=== PATIENT | female | born 1985 | race Caucasian/White ===

== ENCOUNTER 2017-01-04 02:30 | Inpatient (IN) | payer BC ==
[~2017-01-04] VITALS: Ht 157.5 cm; Wt 104.3 kg
[2017-01-04] MEDS ORDERED: OXYTOCIN/NORMAL SALINE 1,000 ML IV SCH (02:37)
[2017-01-04] MEDS ORDERED: NALBUPHINE HCL 10 MG/ML AMP IVP PRN ×2 (02:45→08:15)
[2017-01-04] MEDS ORDERED: TERBUTALINE SULFATE 1 MG/ML VIAL SUBCUT ONE (02:45)
[2017-01-04 03:12] LABS: HEMATOCRIT 32.1 % (36-48); HEMOGLOBIN 10.7 g/dL (12.0-16.0); MEAN CORPUSCULAR VOLUME 85 fL (79.0-98.0); WHITE BLOOD COUNT (AUTO) 16.4 K/uL (4.8-10.8)
[2017-01-04 03:13] LABS: MEAN CORPUSCULAR HEMOGLOBIN 28 pg (27-31); MEAN CORPUSCULAR HGB CONC 33 % (32-36); PLATELET COUNT (AUTO) 255 K/uL (130-430); RED CELL DISTRIBUTION WIDTH 12.7 % (9.0-15.0)
[2017-01-04] MEDS: LR 1,000 ML IV SCH ×3 (03:30→08:57)
[2017-01-04] MEDS ORDERED: FENT2mCg/mL-ROPIVA0.2%/NS EPID 150 ML EP ONE (03:39)
[2017-01-04] MEDS ORDERED: AMPICILLIN SODIUM 2 GM VIAL ONE (03:39)
[2017-01-04 03:44] LABS: ATYPICAL LYMPHOCYTES % 0 % (0-0); BAND % (MANUAL) 5 % (0-6); BASOPHILS % (MANUAL) 0 % (0-2); EOSINOPHILS % (MANUAL) 0 % (0-7); LYMPHOCYTES % (MANUAL) 3 % (20-46); MONOCYTES % (MANUAL) 2 % (0-11)
[2017-01-04] MEDS ORDERED: AMPICILLIN SODIUM 2 GM in NS 100 ML IV ONE (04:00)
[2017-01-04] MEDS ORDERED: LR 500 ML IV ONE (04:25)
[2017-01-04] MEDS ORDERED: FENT2mCg/mL-ROPIVA0.2%/NS EPID 150 ML EP SCH (04:30)
[2017-01-04] MEDS ORDERED: ePHEDrine sulfate 50 MG/ML VIAL IVP PRN (04:30)
[2017-01-04 05:11] VITALS: BP_SYST 129
[2017-01-04] MEDS ORDERED: CEFAZOLIN 2 GM IVPB PREMIX 50 ML IV ONE (06:30)
[2017-01-04] MEDS ORDERED: CITRIC ACID/SODIUM CITRATE 30 ML UDC PO ONE (06:30)
[2017-01-04] MEDS ORDERED: AMPICILLIN SODIUM 1 GM in NS 50 ML IV SCH (08:00)
[2017-01-04] MEDS ORDERED: LR 1,000 ML IV SCH (08:04)
[2017-01-04] MEDS ORDERED: ONDANSETRON HCL 4 MG/2 ML VIAL IVP PRN ×2 (08:15)
[2017-01-04] MEDS ORDERED: NALOXONE HCL 0.4 MG/ML AMP (NARCAN) IVP PRN (08:15)
[2017-01-04] MEDS ORDERED: MEPERIDINE HCL/PF 25 MG/ML DISP.SYRIN IVP PRN ×2 (08:15)
[2017-01-04] MEDS ORDERED: DIPHENHYDRAMINE INJ 50 MG/ML VIAL IVP PRN (08:15)
[2017-01-04] MEDS ORDERED: HYDROmorphone 2 MG/ML VIAL IVP PRN ×2 (08:15)
[2017-01-04] MEDS ORDERED: KETOROLAC TROMETHAMINE 30 MG VIAL IVP PRN ×2 (08:15)
[2017-01-04] MEDS ORDERED: MORPHINE SULFATE 10MG/10ML PF AMP EP SCH (08:15)
[2017-01-04] MEDS ORDERED: HYDROmorphone 1 MG INJ. 1 MG/ML AMPUL IVP PRN ×2 (08:15)
[2017-01-04] MEDS ORDERED: MEPERIDINE HCL/PF 25 MG/ML DISP.SYRIN ONE (08:40)
[2017-01-04] MEDS ORDERED: ANUSOL 1 EA SUPP.RECT (PREPARATION H) RC PRN (08:45)
[2017-01-04] MEDS ORDERED: BISACODYL 10 MG/SUPPOSITORY RC PRN (08:45)
[2017-01-04] MEDS ORDERED: HYDROcodone/ACETAMIN 5-325 MG TAB (NORCO/ VICODIN) PO PRN (08:45)
[2017-01-04] MEDS ORDERED: LANOLIN 7 GM OINT. TP PRN (08:45)
[2017-01-04] MEDS ORDERED: MEASLES,MUMPS&RUBELLA VACC/PF 12500 UNIT/0.5 ML VIAL SUBQ PRN (08:45)
[2017-01-04] MEDS ORDERED: RHO(D) IMMUNE GLOBULIN/MALTOSE 1500 UNITS/1.3 ML (WINHRO) IM PRN (08:45)
[2017-01-04] MEDS ORDERED: OXYTOCIN/NORMAL SALINE 1,000 ML IV ONE ×2 (08:45)
[2017-01-04] MEDS ORDERED: OXYCODONE/ACETAMINOPHEN 5-325 TABLET PO PRN (08:45)
[2017-01-04 09:04] VITALS: BP_SYST 122
[2017-01-04] MEDS: CEFAZOLIN 1 GM IVPB PREMIX 50 ML IV SCH ×2 (14:03→21:00)
[2017-01-04] MEDS: KETOROLAC TROMETHAMINE 30 MG VIAL IVP SCH ×2 (14:05→21:38)
[2017-01-04] MEDS ORDERED: NS IRRIG SOLN 1000 ML IR ONE (17:04)
[2017-01-04] MEDS ORDERED: LR 1,000 ML IV.SOLN IV ONE (17:04)
[2017-01-04] MEDS ORDERED: OXYTOCIN 10 UNIT/ML VIAL IV ONE (17:04)
[2017-01-04] MEDS ORDERED: ROPIVACAINE 40 MG/20 ML AMP EP ONE (17:04)
[2017-01-04] MEDS ORDERED: MORPHINE SULFATE 10MG/10ML PF AMP EP ONE (17:04)
[2017-01-04] MEDS ORDERED: TEMAZEPAM 15 MG CAPSULE PO PRN (21:00)
[2017-01-04 21:15] LABS: HEMATOCRIT 25.9 % (36-48); MEAN CORPUSCULAR HEMOGLOBIN 28 pg (27-31); MEAN CORPUSCULAR HGB CONC 33 % (32-36); MEAN CORPUSCULAR VOLUME 85 fL (79.0-98.0); PLATELET COUNT (AUTO) 178 K/uL (130-430); RED BLOOD CELL COUNT(AUTO) 3.06 MIL/uL (4.2-6.2); RED CELL DISTRIBUTION WIDTH 12.9 % (9.0-15.0)
[2017-01-04 21:17] LABS: WHITE BLOOD COUNT (AUTO) 10.9 K/uL (4.8-10.8)
[2017-01-04 21:18] LABS: HEMOGLOBIN 8.6 g/dL (12.0-16.0)
[2017-01-04 21:28] LABS: BAND % (MANUAL) 10 % (0-6); BASOPHILS % (MANUAL) 0 % (0-2); EOSINOPHILS % (MANUAL) 0 % (0-7); LYMPHOCYTES % (MANUAL) 4 % (20-46); MONOCYTES % (MANUAL) 4 % (0-11)
[2017-01-04] MEDS ORDERED: ACETAMINOPHEN 325 MG TABLET PO PRN (22:45)
[2017-01-05] MEDS: CEFAZOLIN 1 GM IVPB PREMIX 50 ML IV SCH (02:44)
[2017-01-05] MEDS: KETOROLAC TROMETHAMINE 30 MG VIAL IVP SCH ×2 (02:45→09:35)
[2017-01-05] MEDS: LR 1,000 ML IV SCH (02:47)
[2017-01-05 06:31] LABS: BASOPHILS % (AUTO) 0.1 % (0.0-2.0); EOSINOPHILS % (AUTO) 0.1 % (0.0-4.0); LYMPHOCYTES # (AUTO) 0.6 K/uL (1.0-5.5); LYMPHOCYTES % (AUTO) 4.9 % (20.5-51.5); MEAN CORPUSCULAR HEMOGLOBIN 29 pg (27-31); MEAN CORPUSCULAR HGB CONC 33 % (32-36); MEAN CORPUSCULAR VOLUME 86 fL (79.0-98.0); MONOCYTES # (AUTO) 0.6 K/uL (0.0-1.0); MONOCYTES % (AUTO) 5.2 % (1.7-9.3); NEUTROPHILS # (AUTO) 10.5 K/uL (1.8-7.7); PLATELET COUNT (AUTO) 191 K/uL (130-430); RED CELL DISTRIBUTION WIDTH 12.5 % (9.0-15.0); WHITE BLOOD COUNT (AUTO) 11.7 K/uL (4.8-10.8)
[2017-01-05 07:09] LABS: NEUTROPHILS % (AUTO) 89.7 % (40.0-70.0)
[2017-01-05] MEDS: DOCUSATE SODIUM 100 MG CAPSULE PO PRN ×2 (13:31→21:34)
[2017-01-05] MEDS: IBUPROFEN 600 MG TABLET PO SCH ×3 (13:32→23:59)
[2017-01-05] MEDS: SENNOSIDES/DOCUSATE SODIUM 1 TAB TABLET(SENOKOT-S) PO PRN ×2 (13:32→21:34)
[2017-01-05] MEDS: SIMETHICONE 80 MG TAB.CHEW PO PRN ×2 (13:32→21:34)
[2017-01-06] MEDS: OXYCODONE/ACETAMINOPHEN 5-325 TABLET PO PRN ×2 (01:16→19:14)
[2017-01-06] MEDS: IBUPROFEN 600 MG TABLET PO SCH ×3 (05:58→18:05)
[2017-01-06] MEDS: SIMETHICONE 80 MG TAB.CHEW PO PRN (16:35)
[2017-01-06] MEDS: DOCUSATE SODIUM 100 MG CAPSULE PO PRN (16:35)
== END 2017-01-06 20:20 | disposition home or self-care (01) | DRG 766 ==
LOC: SPU 02:30
PROVIDERS: ADMIT Specialist; ATTEND Specialist
PROC: 3E0R3BZ Introduction of Anesthetic Agent into Spinal Canal, Percutaneous Approach (ICD-10-PCS; 2017-01-04)
PROC: 00HU33Z Insertion of Infusion Device into Spinal Canal, Percutaneous Approach (ICD-10-PCS; 2017-01-04)
PROC: 10D00Z1 Extraction of Products of Conception, Low, Open Approach (ICD-10-PCS; principal; 2017-01-04 07:30)
DX: O76 Abnormality in fetal heart rate and rhythm complicating labor and delivery (principal); O33.9 Maternal care for disproportion, unspecified; O48.0 Post-term pregnancy; Z37.0 Single live birth; O62.2 Other uterine inertia; O77.0 Labor and delivery complicated by meconium in amniotic fluid; Z3A.40 40 weeks gestation of pregnancy
CPT/HCPCS: 36415; 85007; 85025; 85027; 86886; 86900; 86901; 87040-TC; J0290; J0690; J1885; J2175; J2274; J2590; J2795; J3010; J7120

== ENCOUNTER 2018-11-04 06:21 | Inpatient (IN) | payer BC ==
[2018-11-02 15:20] LABS: BILIRUBIN,URINE NEGATIVE (NEGATIVE); BLOOD, URINE NEGATIVE (NEGATIVE); CLARITY/URINE HAZY (CLEAR); COLOR,URINE YELLOW (YELLOW); GLUCOSE,URINE NEGATIVE (NEGATIVE); KETONES,URINE NEGATIVE (NEGATIVE); LEUKOCYTE ESTERASE ,URINE NEGATIVE (NEGATIVE); NITRITE, URINE NEGATIVE (NEGATIVE); PH,URINE 6.5 (5.0-8.0); PROTEIN URINE NEGATIVE (NEGATIVE); UROBILINOGEN,URINE 0.2 (0.2-1.0)
[2018-11-02 15:26] LABS: BASOPHILS % (AUTO) 0.4 % (0.0-2.0); EOSINOPHILS # (AUTO) 0.1 K/uL (0.0-0.4); EOSINOPHILS % (AUTO) 1.7 % (0.0-4.0); HEMATOCRIT 29.6 % (36-48); LYMPHOCYTES # (AUTO) 0.7 K/uL (1.0-5.5); LYMPHOCYTES % (AUTO) 11.7 % (20.5-51.5); MEAN CORPUSCULAR HEMOGLOBIN 29 pg (27-31); MEAN CORPUSCULAR HGB CONC 34 % (32-36); MEAN CORPUSCULAR VOLUME 86 fL (79.0-98.0); MONOCYTES # (AUTO) 0.4 K/uL (0.0-1.0); MONOCYTES % (AUTO) 5.8 % (1.7-9.3); NEUTROPHILS # (AUTO) 5.1 K/uL (1.8-7.7); NEUTROPHILS % (AUTO) 80.4 % (40.0-70.0); PLATELET COUNT (AUTO) 171 K/uL (130-430); RED BLOOD CELL COUNT(AUTO) 3.44 MIL/uL (4.2-6.2); RED CELL DISTRIBUTION WIDTH 13.4 % (9.0-15.0); WHITE BLOOD COUNT (AUTO) 6.3 K/uL (4.8-10.8)
[~2018-11-04] VITALS: Ht 162.6 cm; Wt 103.4 kg
[2018-11-04] MEDS ORDERED: LR 1,000 ML IV SCH ×3 (06:26→08:37)
[2018-11-04] MEDS ORDERED: CEFAZOLIN 2 GM IVPB PREMIX 50 ML IV ONE (06:30)
[2018-11-04 06:48] VITALS: BP_SYST 114
[2018-11-04] MEDS ORDERED: NALOXONE HCL 1 MG in NACL 0.9% 1,000 ML IV PRN ×4 (07:36)
[2018-11-04] MEDS ORDERED: DIPHENHYDRAMINE HCL 50 MG CAPSULE PO PRN (07:45)
[2018-11-04] MEDS ORDERED: DIPHENHYDRAMINE INJ 50 MG/ML VIAL IVP PRN (07:45)
[2018-11-04] MEDS ORDERED: ONDANSETRON HCL 4 MG/2 ML VIAL IVP PRN (07:45)
[2018-11-04] MEDS ORDERED: HYDROmorphone 2 MG/ML VIAL IVP PRN ×2 (07:45)
[2018-11-04] MEDS ORDERED: MEPERIDINE HCL/PF 25 MG/ML DISP.SYRIN IVP PRN ×2 (07:45)
[2018-11-04] MEDS ORDERED: HYDROmorphone 1 MG INJ. 1 MG/ML AMPUL IVP PRN ×2 (07:45→13:00)
[2018-11-04] MEDS ORDERED: NALOXONE HCL 0.4 MG/ML AMP (NARCAN) IVP PRN ×3 (07:45)
[2018-11-04] MEDS ORDERED: OXYTOCIN/0.9 % SODIUM CHLORIDE 1,000 ML IV ONE (08:37)
[2018-11-04] MEDS ORDERED: MORPHINE SULFATE 10MG/10ML PF AMP EP ONE (08:45)
[2018-11-04] MEDS ORDERED: RHO(D) IMMUNE GLOBULIN/MALTOSE 1500 UNITS/1.3 ML (WINHRO) IM PRN (08:45)
[2018-11-04] MEDS ORDERED: ANUSOL 1 EA SUPP.RECT (PREPARATION H) RC PRN (08:45)
[2018-11-04] MEDS ORDERED: ONDANSETRON HCL 4 MG/2 ML VIAL ONE (08:45)
[2018-11-04] MEDS ORDERED: ePHEDrine sulfate 50 MG/ML VIAL ONE (08:45)
[2018-11-04] MEDS ORDERED: BUPIVACAINE /DEX PF 0.75% SPINAL 2 ML AMP INJ ONE (08:45)
[2018-11-04] MEDS ORDERED: TRIAMCINOLONE ACETONIDE 40 MG/ML ONE (08:45)
[2018-11-04] MEDS ORDERED: DIPH-TET-PERTUS Vaccine 0.5 ML VIAL (ADACEL) I.M. PRN (08:45)
[2018-11-04] MEDS ORDERED: OXYTOCIN/0.9 % SODIUM CHLORIDE 20 UNITS/1,000 ML BAG IV ONE (08:45)
[2018-11-04] MEDS ORDERED: HYDROcodone/ACETAMIN 5-325 MG TAB (NORCO/ VICODIN) PO PRN (08:45)
[2018-11-04] MEDS ORDERED: BISACODYL 10 MG/SUPPOSITORY RC PRN (08:45)
[2018-11-04] MEDS ORDERED: SENNOSIDES/DOCUSATE SODIUM 1 TAB TABLET(SENOKOT-S) PO PRN (08:45)
[2018-11-04] MEDS ORDERED: MEASLES,MUMPS&RUBELLA VACC/PF 12500 UNIT/0.5 ML VIAL SUBQ PRN (08:45)
[2018-11-04 09:42] VITALS: BP_SYST 108
[2018-11-04] MEDS: CEFAZOLIN 1 GM IVPB PREMIX 50 ML IV SCH ×2 (12:12→18:11)
[2018-11-04] MEDS: KETOROLAC TROMETHAMINE 30 MG VIAL IVP SCH (18:12)
[2018-11-04] MEDS ORDERED: TEMAZEPAM 15 MG CAPSULE PO PRN (21:00)
[2018-11-05] MEDS: KETOROLAC TROMETHAMINE 30 MG VIAL IVP SCH ×3 (00:48→11:31)
[2018-11-05] MEDS: CEFAZOLIN 1 GM IVPB PREMIX 50 ML IV SCH (00:49)
[2018-11-05 07:08] LABS: BASOPHILS % (AUTO) 0.2 % (0.0-2.0); EOSINOPHILS # (AUTO) 0.1 K/uL (0.0-0.4); EOSINOPHILS % (AUTO) 0.6 % (0.0-4.0); HEMATOCRIT 25.6 % (36-48); HEMOGLOBIN 8.8 g/dL (12.0-16.0); LYMPHOCYTES # (AUTO) 0.8 K/uL (1.0-5.5); LYMPHOCYTES % (AUTO) 9.4 % (20.5-51.5); MEAN CORPUSCULAR HEMOGLOBIN 29 pg (27-31); MEAN CORPUSCULAR HGB CONC 34 % (32-36); MEAN CORPUSCULAR VOLUME 86 fL (79.0-98.0); MONOCYTES # (AUTO) 0.5 K/uL (0.0-1.0); MONOCYTES % (AUTO) 6.1 % (1.7-9.3); NEUTROPHILS # (AUTO) 6.9 K/uL (1.8-7.7); NEUTROPHILS % (AUTO) 83.7 % (40.0-70.0); PLATELET COUNT (AUTO) 169 K/uL (130-430); RED CELL DISTRIBUTION WIDTH 13.8 % (9.0-15.0); WHITE BLOOD COUNT (AUTO) 8.3 K/uL (4.8-10.8)
[2018-11-05] MEDS ORDERED: KETOROLAC TROMETHAMINE 60 MG/2 ML VIAL IM ONE (08:02)
[2018-11-05] MEDS: SIMETHICONE 80 MG TAB.CHEW PO PRN (11:32)
[2018-11-05] MEDS: DOCUSATE SODIUM 100 MG CAPSULE PO PRN (15:10)
[2018-11-05] MEDS: OXYCODONE/ACETAMINOPHEN 5-325 TABLET PO PRN ×3 (15:10→22:17)
[2018-11-05] MEDS ORDERED: IBUPROFEN 600 MG TABLET PO SCH (18:00)
[2018-11-06] MEDS: OXYCODONE/ACETAMINOPHEN 5-325 TABLET PO PRN ×4 (04:21→19:34)
[2018-11-06] MEDS: DOCUSATE SODIUM 100 MG CAPSULE PO PRN ×2 (04:22→19:34)
[2018-11-06] MEDS: SIMETHICONE 80 MG TAB.CHEW PO PRN ×2 (04:22→08:24)
[2018-11-06] MEDS ORDERED: KETOROLAC TROMETHAMINE 60 MG/2 ML VIAL IM ONE (12:15)
== END 2018-11-06 20:00 | disposition home or self-care (01) | DRG 788 ==
LOC: SPU 06:21
PROVIDERS: ADMIT Specialist; ATTEND Specialist
PROC: 10D00Z1 Extraction of Products of Conception, Low, Open Approach (ICD-10-PCS; principal; 2018-11-04 07:25)
DX: O69.81X0 Labor and delivery complicated by cord around neck, without compression, not applicable or unspecified (principal); Z37.0 Single live birth; O34.211 Maternal care for low transverse scar from previous cesarean delivery; Z3A.39 39 weeks gestation of pregnancy
CPT/HCPCS: 36415; 81003; 85025; 86592; 86886; 86900; 86901; 94760; J0690; J1170; J1200; J1885; J2274; J2310; J2405; J2590; J3301; J3490; J7030; J7120

== ENCOUNTER 2020-10-24 06:00 | Inpatient (IN) | payer OTHER ==
[2020-10-20 13:10] LABS: BASOPHILS % (AUTO) 0.4 % (0.0-2.0); EOSINOPHILS # (AUTO) 0.1 K/uL (0.0-0.4); EOSINOPHILS % (AUTO) 1.5 % (0.0-4.0); HEMATOCRIT 29.5 % (36-48); LYMPHOCYTES # (AUTO) 0.8 K/uL (1.0-5.5); LYMPHOCYTES % (AUTO) 11.1 % (20.5-51.5); MEAN CORPUSCULAR HEMOGLOBIN 28 pg (27-31); MEAN CORPUSCULAR HGB CONC 34 % (32-36); MEAN CORPUSCULAR VOLUME 82 fL (79.0-98.0); MONOCYTES # (AUTO) 0.5 K/uL (0.0-1.0); MONOCYTES % (AUTO) 6.7 % (1.7-9.3); NEUTROPHILS # (AUTO) 5.8 K/uL (1.8-7.7); NEUTROPHILS % (AUTO) 80.3 % (40.0-70.0); PLATELET COUNT (AUTO) 190 K/uL (130-430); RED CELL DISTRIBUTION WIDTH 14.2 % (9.0-15.0); WHITE BLOOD COUNT (AUTO) 7.2 K/uL (4.8-10.8)
[2020-10-20 13:43] LABS: BILIRUBIN,URINE NEGATIVE (NEGATIVE); BLOOD, URINE NEGATIVE (NEGATIVE); COLOR,URINE YELLOW (YELLOW); GLUCOSE,URINE NEGATIVE (NEGATIVE); KETONES,URINE TRACE (NEGATIVE); LEUKOCYTE ESTERASE ,URINE NEGATIVE (NEGATIVE); NITRITE, URINE NEGATIVE (NEGATIVE); PROTEIN URINE NEGATIVE (NEGATIVE)
[2020-10-20 13:48] LABS: CLARITY/URINE SLIGHTLY HAZY (CLEAR)
[~2020-10-24] VITALS: Ht 157.5 cm; Wt 100.7 kg
[2020-10-24] MEDS ORDERED: LR 1,000 ML IV SCH ×2 (07:00→08:15)
[2020-10-24] MEDS ORDERED: CEFAZOLIN 2 GM IVPB PREMIX 50 ML IV ONE ×2 (07:00→07:29)
[2020-10-24 07:02] VITALS: BP_SYST 131
[2020-10-24 07:34] LABS: BASOPHILS % (AUTO) 0.4 % (0.0-2.0); EOSINOPHILS # (AUTO) 0.1 K/uL (0.0-0.4); EOSINOPHILS % (AUTO) 1.3 % (0.0-4.0); HEMATOCRIT 26.6 % (36-48); HEMOGLOBIN 9.1 g/dL (12.0-16.0); LYMPHOCYTES # (AUTO) 0.9 K/uL (1.0-5.5); LYMPHOCYTES % (AUTO) 12.9 % (20.5-51.5); MEAN CORPUSCULAR HEMOGLOBIN 28 pg (27-31); MEAN CORPUSCULAR HGB CONC 34 % (32-36); MEAN CORPUSCULAR VOLUME 82 fL (79.0-98.0); MONOCYTES # (AUTO) 0.5 K/uL (0.0-1.0); MONOCYTES % (AUTO) 6.8 % (1.7-9.3); NEUTROPHILS # (AUTO) 5.7 K/uL (1.8-7.7); NEUTROPHILS % (AUTO) 78.6 % (40.0-70.0); PLATELET COUNT (AUTO) 178 K/uL (130-430); RED BLOOD CELL COUNT(AUTO) 3.27 MIL/uL (4.2-6.2); RED CELL DISTRIBUTION WIDTH 14.2 % (9.0-15.0); WHITE BLOOD COUNT (AUTO) 7.2 K/uL (4.8-10.8)
[2020-10-24] MEDS ORDERED: BUPIVACAINE /DEX PF 0.75% SPINAL 2 ML AMP INJ ONE (07:53)
[2020-10-24] MEDS ORDERED: NS IRRIG SOLN 1000 ML IR ONE (07:53)
[2020-10-24] MEDS ORDERED: LR 1,000 ML IV.SOLN IV ONE (07:53)
[2020-10-24] MEDS ORDERED: OXYTOCIN 10 UNIT/ML VIAL IM ONE (07:53)
[2020-10-24] MEDS ORDERED: ePHEDrine sulfate 50 MG/ML VIAL IM ONE (07:53)
[2020-10-24] MEDS ORDERED: DIPHENHYDRAMINE INJ 50 MG/ML VIAL IV ONE (07:53)
[2020-10-24] MEDS ORDERED: MORPHINE SULFATE 10MG/10ML PF AMP EP ONE (07:53)
[2020-10-24] MEDS ORDERED: NALOXONE HCL 0.4 MG/ML AMP (NARCAN) IVP PRN (08:15)
[2020-10-24] MEDS ORDERED: LANOLIN 7 GM OINT. TP PRN (08:15)
[2020-10-24] MEDS ORDERED: RHO(D) IMMUNE GLOBULIN/MALTOSE 1500 UNITS/1.3 ML (WINHRO) IM PRN (08:15)
[2020-10-24] MEDS ORDERED: ANUSOL 1 EA SUPP.RECT (PREPARATION H) RC PRN (08:15)
[2020-10-24] MEDS ORDERED: OXYCODONE/ACETAMINOPHEN *10*mg/325 mg TABLET PO PRN (08:15)
[2020-10-24] MEDS ORDERED: TEMAZEPAM 15 MG CAPSULE PO PRN (08:15)
[2020-10-24] MEDS ORDERED: BISACODYL 10 MG/SUPPOSITORY RC PRN (08:15)
[2020-10-24] MEDS ORDERED: MEASLES,MUMPS&RUBELLA VACC/PF 12500 UNIT/0.5 ML VIAL SUBQ PRN (08:15)
[2020-10-24] MEDS ORDERED: DIPH-TET-PERTUS Vaccine 0.5 ML VIAL (ADACEL) I.M. PRN (08:15)
[2020-10-24] MEDS ORDERED: HYDROcodone/ACETAMIN 5-325 MG TAB (NORCO/ VICODIN) PO PRN (08:15)
[2020-10-24] MEDS ORDERED: DOCUSATE SODIUM 100 MG CAPSULE PO ONE (09:00)
[2020-10-24] MEDS: DIPHENHYDRAMINE INJ 50 MG/ML VIAL IVP PRN ×4 (11:05→21:49)
[2020-10-24] MEDS: CEFAZOLIN 1 GM IVPB PREMIX 50 ML IV SCH ×2 (14:06→20:37)
[2020-10-24] MEDS: SIMETHICONE 80 MG TAB.CHEW PO PRN ×2 (14:07→20:39)
[2020-10-24] MEDS: OXYTOCIN/0.9 % SODIUM CHLORIDE 1,000 ML IV SCH ×2 (14:07→23:14)
[2020-10-24] MEDS: KETOROLAC TROMETHAMINE 30 MG VIAL IVP SCH (17:58)
[2020-10-24] MEDS: SENNOSIDES/DOCUSATE SODIUM 1 TAB TABLET(SENOKOT-S) PO SCH (20:38)
[2020-10-25] MEDS: KETOROLAC TROMETHAMINE 30 MG VIAL IVP SCH ×3 (00:03→11:25)
[2020-10-25] MEDS: CEFAZOLIN 1 GM IVPB PREMIX 50 ML IV SCH (02:16)
[2020-10-25 04:55] VITALS: BP_SYST 100
[2020-10-25] MEDS: DOCUSATE SODIUM 100 MG CAPSULE PO SCH ×2 (08:49→20:39)
[2020-10-25] MEDS: SIMETHICONE 80 MG TAB.CHEW PO PRN ×5 (08:49→20:39)
[2020-10-25 08:50] LABS: BASOPHILS % (AUTO) 0.4 % (0.0-2.0); EOSINOPHILS # (AUTO) 0.1 K/uL (0.0-0.4); EOSINOPHILS % (AUTO) 1.2 % (0.0-4.0); HEMATOCRIT 25.5 % (36-48); HEMOGLOBIN 8.6 g/dL (12.0-16.0); LYMPHOCYTES # (AUTO) 0.7 K/uL (1.0-5.5); LYMPHOCYTES % (AUTO) 10.4 % (20.5-51.5); MEAN CORPUSCULAR HEMOGLOBIN 28 pg (27-31); MEAN CORPUSCULAR HGB CONC 34 % (32-36); MEAN CORPUSCULAR VOLUME 82 fL (79.0-98.0); MONOCYTES # (AUTO) 0.5 K/uL (0.0-1.0); MONOCYTES % (AUTO) 6.6 % (1.7-9.3); NEUTROPHILS # (AUTO) 5.9 K/uL (1.8-7.7); NEUTROPHILS % (AUTO) 81.4 % (40.0-70.0); PLATELET COUNT (AUTO) 163 K/uL (130-430); RED CELL DISTRIBUTION WIDTH 14.1 % (9.0-15.0); WHITE BLOOD COUNT (AUTO) 7.2 K/uL (4.8-10.8)
[2020-10-25] MEDS ORDERED: IBUPROFEN 600 MG TABLET PO SCH (12:00)
[2020-10-25] MEDS ORDERED: IBUPROFEN 100 MG/5 ML UDC PO ONE (12:00)
[2020-10-25] MEDS: IBUPROFEN 100 MG/5 ML UDC PO SCH ×2 (12:19→18:01)
[2020-10-25] MEDS: OXYCODONE/ACETAMINOPHEN 5-325 TABLET PO PRN ×2 (13:49→18:01)
[2020-10-25] MEDS: SENNOSIDES/DOCUSATE SODIUM 1 TAB TABLET(SENOKOT-S) PO SCH (20:39)
[2020-10-26] MEDS: DOCUSATE SODIUM 100 MG CAPSULE PO SCH (09:45)
[2020-10-26] MEDS: SIMETHICONE 80 MG TAB.CHEW PO PRN (09:46)
[2020-10-26] MEDS: IBUPROFEN 100 MG/5 ML UDC PO SCH (12:18)
[2020-10-26] MEDS: OXYCODONE/ACETAMINOPHEN 5-325 TABLET PO PRN (15:39)
== END 2020-10-26 18:40 | disposition home or self-care (01) | DRG 788 ==
LOC: SPU 06:00
PROVIDERS: ADMIT Specialist; ATTEND Specialist
PROC: 10D00Z1 Extraction of Products of Conception, Low, Open Approach (ICD-10-PCS; principal; 2020-10-24 07:30)
DX: O34.211 Maternal care for low transverse scar from previous cesarean delivery (principal); Z20.822 Contact with and (suspected) exposure to COVID-19; Z3A.38 38 weeks gestation of pregnancy; Z37.0 Single live birth
CPT/HCPCS: 36415; 81003; 85025; 86886; 86900; 86901; J0690; J1200; J1885; J2274; J2590; J3490; J7120; U0003